=== PATIENT | male | born 1965 | race African-American/Black ===

== ENCOUNTER 2018-05-19 22:19 | Inpatient (IN) | payer OTHER ==
[~2018-05-19] VITALS: Ht 177.8 cm; Wt 159.0 kg
[2018-05-19] MEDS ORDERED: LOVA10TA2 PO (22:41)
[2018-05-19] MEDS ORDERED: AMLO-512 PO (22:41)
[2018-05-19] MEDS ORDERED: LISI-618 PO (22:41)
[2018-05-19] MEDS ORDERED: METF-961 PO (22:41)
[2018-05-19] MEDS ORDERED: METO1TAB42 PO (22:41)
[2018-05-19] MEDS ORDERED: GLIP5TAB11 PO (22:41)
[2018-05-19] MEDS ORDERED: LEVO88TA7 PO (22:41)
[2018-05-19 23:32] LABS: HEMATOCRIT 42.5 % (41-53); MEAN CORPUSCULAR VOLUME 85 fL (80-100); RED BLOOD CELL COUNT(AUTO) 5.02 MIL/uL (4.50-5.90)
[2018-05-19 23:33] LABS: MEAN CORPUSCULAR HEMOGLOBIN 27.9 pg (26.0-34.0); PLATELET COUNT (AUTO) 400 K/uL (150-450); RED CELL DISTRIBUTION WIDTH 15.8 % (11.5-14.5)
[2018-05-19 23:40] LABS: BAND NEUTROPHILS % (MANUAL) 13 % (0-5); LYMPHOCYTES % (MANUAL) 12 % (22-44); MONOCYTES % (MANUAL) 10 % (2-9); SEGMENTED NEUTROPHILS % 65 % (40-70)
[2018-05-19 23:42] LABS: ANION GAP 6 mmol/L (8-16); CALCIUM, TOTAL 8.3 mg/dL (8.8-10.5); CARBON DIOXIDE 32 mmol/L (22-29); CHLORIDE 98 mmol/L (98-107); CREATININE 1.33 mg/dL (0.60-1.30); GLOMERULAR FILTR. RATE CALC > 60 mL/min (>60); GLUCOSE,RANDOM 214 mg/dL (70-110); POTASSIUM 4.7 mmol/L (3.5-5.1); SODIUM SERUM 136 mmol/L (136-145); UREA NITROGEN, BLOOD 14 mg/dL (7-18)
[2018-05-19] MEDS ORDERED: AZITHROMYCIN 500 MG/NS 250 ML IV ONE (23:45)
[2018-05-19] MEDS ORDERED: CefTRIAXone SODIUM 1 GM in DEXTROSE 5%-WATER 10 ML IV ONE (23:45)
[2018-05-19] MEDS ORDERED: SODIUM CHLORIDE 0.9% 1,000 ML IV ONE (23:45)
[2018-05-19 23:48] LABS: ALANINE AMINOTRANSFERASE 40 U/L (12-78); ALBUMIN 3.5 g/dL (3.4-5.0); ALKALINE PHOSPHATASE 79 U/L (46-116); ASPARTATE AMINOTRANSFERASE 18 U/L (15-37); BILIRUBIN,TOTAL 0.5 mg/dL (0.1-1.0); TOTAL PROTEIN, SERUM 7.9 g/dL (6.4-8.2)
[2018-05-20] VITALS (7 sets, daily range): BP systolic 107–140; BP diastolic 63–79
[2018-05-20] MEDS ORDERED: ONDANSETRON HCL 4 MG/2 ML VIAL IVP PRN
[2018-05-20] MEDS ORDERED: MAGNESIUM HYDROXIDE SUSPENSION 30 ML UDCUP PO PRN
[2018-05-20] MEDS ORDERED: MORPHINE SULFATE 2 MG/ML SYRINGE IVP PRN
[2018-05-20] MEDS ORDERED: BISACODYL 10 MG RECTAL RECTAL SUPPOSITORY PR PRN
[2018-05-20] MEDS ORDERED: MORPHINE SULFATE 4 MG/ML SYRINGE IVP PRN (01:21)
[2018-05-20] MEDS: HEPARIN SODIUM,PORCINE 5,000 UNITS/ML VIAL SQ SCH ×4 (01:41→23:34)
[2018-05-20] MEDS: ZOLPIDEM TARTRATE 5 MG TABLET PO PRN (01:41)
[2018-05-20] MEDS: HYDROCODONE/ACETAMINOPHEN 5-325 MG TABLET PO PRN ×3 (01:49→17:04)
[2018-05-20] MEDS: LEVOFLOXACIN 750 MG/D5% WATER 150 ML IV SCH ×2 (03:04→23:35)
[2018-05-20 06:19] LABS: GLUCOMETER DEV NAME(LOC) 6N 2D; GLUCOSE,POINT OF CARE 154 MG/DL (70-110)
[2018-05-20 07:23] LABS: BASOPHILS % (AUTO) 1.6 % (0.0-2.0); EOSINOPHILS % (AUTO) 0.7 % (1.0-6.0); HEMATOCRIT 39.5 % (41-53); HEMOGLOBIN 12.7 g/dL (13.5-17.5); LYMPHOCYTES # (AUTO) 2.1 K/uL (1.0-4.8); LYMPHOCYTES % (AUTO) 19.1 % (22.0-44.0); MEAN CORPUSCULAR HEMOGLOBIN 27.5 pg (26.0-34.0); MEAN CORPUSCULAR HGB CONC 32.3 G/dL (31.0-37.0); MEAN CORPUSCULAR VOLUME 85 fL (80-100); MONOCYTES # (AUTO) 1.1 K/uL (0.1-1.0); MONOCYTES % (AUTO) 10.2 % (2.0-9.0); NEUTROPHILS # (AUTO) 7.6 K/uL (1.8-7.7); NEUTROPHILS % (AUTO) 68.4 % (40.0-70.0); PLATELET COUNT (AUTO) 354 K/uL (150-450); RED BLOOD CELL COUNT(AUTO) 4.63 MIL/uL (4.50-5.90); RED CELL DISTRIBUTION WIDTH 15.2 % (11.5-14.5)
[2018-05-20 07:37] LABS: ANION GAP 5 mmol/L (8-16); CALCIUM, TOTAL 7.9 mg/dL (8.8-10.5); CARBON DIOXIDE 33 mmol/L (22-29); CHLORIDE 98 mmol/L (98-107); CREATININE 1.38 mg/dL (0.60-1.30); GLOMERULAR FILTR. RATE CALC > 60 mL/min (>60); GLUCOSE,RANDOM 147 mg/dL (70-110); POTASSIUM 4.5 mmol/L (3.5-5.1); SODIUM SERUM 136 mmol/L (136-145); UREA NITROGEN, BLOOD 15 mg/dL (7-18)
[2018-05-20] MEDS: HYDROCHLOROTHIAZIDE 25 MG TABLET PO SCH ×2 (08:36→19:45)
[2018-05-20] MEDS: METOPROLOL SUCCINATE 50 MG ER TABLET PO SCH ×2 (08:37→19:45)
[2018-05-20] MEDS: DOCUSATE SODIUM 100 MG CAPSULE PO SCH ×2 (08:38→19:37)
[2018-05-20] MEDS: PANTOPRAZOLE SODIUM 40 MG DR TABLET PO SCH (08:38)
[2018-05-20] MEDS: GlipiZIDE 5 MG TABLET PO SCH ×2 (08:38→19:37)
[2018-05-20] MEDS: MetFORMIN HCL 850 MG TABLET PO SCH ×2 (08:38→16:56)
[2018-05-20] MEDS: AmLODIPine BESYLATE 10 MG TABLET PO SCH (08:38)
[2018-05-20] MEDS: LEVOTHYROXINE SODIUM 88 MCG TABLET PO SCH (08:38)
[2018-05-20] MEDS: LOVASTATIN 20 MG TABLET PO SCH (08:38)
[2018-05-20] MEDS: LISINOPRIL 20 MG TABLET PO SCH ×2 (08:39→19:45)
[2018-05-20] MEDS ORDERED: FLUoxetine HCL 10 MG CAPSULE PO SCH ×2 (16:00→17:00)
[2018-05-20 19:54] LABS: GLUCOMETER DEV NAME(LOC) 6N 2D; GLUCOSE,POINT OF CARE 138 MG/DL (70-110)
[2018-05-21] MEDS: ZOLPIDEM TARTRATE 5 MG TABLET PO PRN (00:38)
[2018-05-21 04:45] VITALS: BP 116/73
[2018-05-21] MEDS: LEVOTHYROXINE SODIUM 88 MCG TABLET PO SCH (06:04)
[2018-05-21 06:53] LABS: BASOPHILS % (AUTO) 0.6 % (0.0-2.0); EOSINOPHILS % (AUTO) 1.5 % (1.0-6.0); HEMATOCRIT 39.5 % (41-53); HEMOGLOBIN 12.9 g/dL (13.5-17.5); LYMPHOCYTES % (AUTO) 19.5 % (22.0-44.0); MEAN CORPUSCULAR HGB CONC 32.6 G/dL (31.0-37.0); MEAN CORPUSCULAR VOLUME 86 fL (80-100); MONOCYTES # (AUTO) 0.8 K/uL (0.1-1.0); MONOCYTES % (AUTO) 8.2 % (2.0-9.0); NEUTROPHILS # (AUTO) 7.3 K/uL (1.8-7.7); NEUTROPHILS % (AUTO) 70.2 % (40.0-70.0); PLATELET COUNT (AUTO) 344 K/uL (150-450); RED BLOOD CELL COUNT(AUTO) 4.59 MIL/uL (4.50-5.90); RED CELL DISTRIBUTION WIDTH 15.3 % (11.5-14.5)
[2018-05-21 07:21] LABS: ANION GAP 5 mmol/L (8-16); CALCIUM, TOTAL 8.5 mg/dL (8.8-10.5); CARBON DIOXIDE 33 mmol/L (22-29); CHLORIDE 98 mmol/L (98-107); CREATININE 1.45 mg/dL (0.60-1.30); GLOMERULAR FILTR. RATE CALC > 60 mL/min (>60); GLUCOSE,RANDOM 115 mg/dL (70-110); POTASSIUM 4.8 mmol/L (3.5-5.1); SODIUM SERUM 136 mmol/L (136-145); UREA NITROGEN, BLOOD 22 mg/dL (7-18)
[2018-05-21 07:39] VITALS: BP 136/46
[2018-05-21] MEDS: HYDROCHLOROTHIAZIDE 25 MG TABLET PO SCH ×2 (08:24→21:00)
[2018-05-21] MEDS: LOVASTATIN 20 MG TABLET PO SCH (08:24)
[2018-05-21] MEDS: LISINOPRIL 20 MG TABLET PO SCH ×2 (08:25→21:00)
[2018-05-21] MEDS: GlipiZIDE 5 MG TABLET PO SCH ×2 (08:25→20:45)
[2018-05-21] MEDS: MetFORMIN HCL 850 MG TABLET PO SCH ×2 (08:25→18:12)
[2018-05-21] MEDS: HEPARIN SODIUM,PORCINE 5,000 UNITS/ML VIAL SQ SCH ×3 (08:25→23:52)
[2018-05-21] MEDS: PANTOPRAZOLE SODIUM 40 MG DR TABLET PO SCH (08:25)
[2018-05-21] MEDS: DOCUSATE SODIUM 100 MG CAPSULE PO SCH ×2 (08:25→20:45)
[2018-05-21] MEDS: AmLODIPine BESYLATE 10 MG TABLET PO SCH (08:25)
[2018-05-21] MEDS: METOPROLOL SUCCINATE 50 MG ER TABLET PO SCH ×2 (08:27→20:44)
[2018-05-21] MEDS: FLUoxetine HCL 20 MG/5 ML SOLUTION ORAL.SYG PO SCH (09:55)
[2018-05-21 11:04] VITALS: BP 105/77
[2018-05-21 16:31] VITALS: BP 138/64
[2018-05-21 19:08] LABS: GLUCOMETER DEV NAME(LOC) 6N 2D; GLUCOSE,POINT OF CARE 116 MG/DL (70-110)
[2018-05-21] MEDS: IPRATROPIUM BROMIDE 0.5 MG/2.5 ML NEB SOLUTION NEB PRN (19:47)
[2018-05-21] MEDS: ALBUTEROL SULFATE 2.5 MG/0.5 ML NEB SOLUTION NEB PRN (19:47)
[2018-05-21 20:00] VITALS: BP 115/63
[2018-05-21] MEDS: HYDROCODONE/ACETAMINOPHEN 5-325 MG TABLET PO PRN (20:51)
[2018-05-21] MEDS: LEVOFLOXACIN 750 MG/D5% WATER 150 ML IV SCH (23:52)
[2018-05-22 00:13] VITALS: BP 101/58
[2018-05-22] MEDS: ZOLPIDEM TARTRATE 5 MG TABLET PO PRN ×2 (00:15→23:25)
[2018-05-22 04:50] VITALS: BP 118/54
[2018-05-22 05:41] LABS: BASOPHILS % (AUTO) 0.9 % (0.0-2.0); EOSINOPHILS % (AUTO) 1.5 % (1.0-6.0); HEMATOCRIT 36.7 % (41-53); HEMOGLOBIN 11.8 g/dL (13.5-17.5); LYMPHOCYTES # (AUTO) 1.5 K/uL (1.0-4.8); LYMPHOCYTES % (AUTO) 17.5 % (22.0-44.0); MEAN CORPUSCULAR HEMOGLOBIN 27.6 pg (26.0-34.0); MEAN CORPUSCULAR HGB CONC 32.3 G/dL (31.0-37.0); MEAN CORPUSCULAR VOLUME 86 fL (80-100); MONOCYTES # (AUTO) 0.8 K/uL (0.1-1.0); MONOCYTES % (AUTO) 9.7 % (2.0-9.0); NEUTROPHILS # (AUTO) 6.1 K/uL (1.8-7.7); NEUTROPHILS % (AUTO) 70.4 % (40.0-70.0); PLATELET COUNT (AUTO) 337 K/uL (150-450); RED BLOOD CELL COUNT(AUTO) 4.28 MIL/uL (4.50-5.90); RED CELL DISTRIBUTION WIDTH 14.9 % (11.5-14.5)
[2018-05-22 05:57] LABS: ANION GAP 1 mmol/L (8-16); CALCIUM, TOTAL 8.4 mg/dL (8.8-10.5); CARBON DIOXIDE 36 mmol/L (22-29); CHLORIDE 101 mmol/L (98-107); CREATININE 1.42 mg/dL (0.60-1.30); GLOMERULAR FILTR. RATE CALC > 60 mL/min (>60); GLUCOSE,RANDOM 89 mg/dL (70-110); POTASSIUM 5.1 mmol/L (3.5-5.1); SODIUM SERUM 138 mmol/L (136-145); UREA NITROGEN, BLOOD 23 mg/dL (7-18)
[2018-05-22] MEDS: LEVOTHYROXINE SODIUM 88 MCG TABLET PO SCH (05:59)
[2018-05-22 06:23] LABS: GLUCOMETER DEV NAME(LOC) 6N 2D; GLUCOSE,POINT OF CARE 88 MG/DL (70-110)
[2018-05-22 07:54] VITALS: BP 120/68
[2018-05-22] MEDS: HYDROCODONE/ACETAMINOPHEN 5-325 MG TABLET PO PRN ×3 (08:23→23:26)
[2018-05-22] MEDS: METOPROLOL SUCCINATE 50 MG ER TABLET PO SCH ×2 (08:23→19:48)
[2018-05-22] MEDS: MetFORMIN HCL 850 MG TABLET PO SCH ×2 (08:23→16:56)
[2018-05-22] MEDS: HYDROCHLOROTHIAZIDE 25 MG TABLET PO SCH ×2 (08:23→19:48)
[2018-05-22] MEDS: LISINOPRIL 20 MG TABLET PO SCH ×2 (08:24→19:48)
[2018-05-22] MEDS: LOVASTATIN 20 MG TABLET PO SCH (08:24)
[2018-05-22] MEDS: HEPARIN SODIUM,PORCINE 5,000 UNITS/ML VIAL SQ SCH ×3 (08:24→23:15)
[2018-05-22] MEDS: GlipiZIDE 5 MG TABLET PO SCH ×2 (08:24→19:42)
[2018-05-22] MEDS: FLUoxetine HCL 20 MG/5 ML SOLUTION ORAL.SYG PO SCH (08:24)
[2018-05-22] MEDS: DOCUSATE SODIUM 100 MG CAPSULE PO SCH ×2 (08:24→19:42)
[2018-05-22] MEDS: PANTOPRAZOLE SODIUM 40 MG DR TABLET PO SCH (08:24)
[2018-05-22] MEDS: AmLODIPine BESYLATE 10 MG TABLET PO SCH (08:24)
[2018-05-22 11:13] LABS: GLUCOMETER DEV NAME(LOC) 6N 1E; GLUCOSE,POINT OF CARE 123 MG/DL (70-110)
[2018-05-22 11:40] VITALS: BP 93/63
[2018-05-22 16:17] VITALS: BP 107/54
[2018-05-22 19:40] VITALS: BP 108/47
[2018-05-22 20:13] LABS: GLUCOMETER DEV NAME(LOC) 6N 1E; GLUCOSE,POINT OF CARE 98 MG/DL (70-110)
[2018-05-22] MEDS: LEVOFLOXACIN 750 MG/D5% WATER 150 ML IV SCH (23:15)
[2018-05-23] VITALS (7 sets, daily range): BP systolic 108–134; BP diastolic 61–75
[2018-05-23] MEDS: LEVOTHYROXINE SODIUM 88 MCG TABLET PO SCH (06:01)
[2018-05-23] MEDS: HEPARIN SODIUM,PORCINE 5,000 UNITS/ML VIAL SQ SCH ×3 (08:02→23:58)
[2018-05-23] MEDS: MetFORMIN HCL 850 MG TABLET PO SCH ×2 (08:02→17:37)
[2018-05-23] MEDS: GlipiZIDE 5 MG TABLET PO SCH ×2 (08:02→20:01)
[2018-05-23] MEDS: LOVASTATIN 20 MG TABLET PO SCH (08:03)
[2018-05-23] MEDS: HYDROCODONE/ACETAMINOPHEN 5-325 MG TABLET PO PRN ×2 (08:03→20:18)
[2018-05-23] MEDS: PANTOPRAZOLE SODIUM 40 MG DR TABLET PO SCH (08:03)
[2018-05-23] MEDS: METOPROLOL SUCCINATE 50 MG ER TABLET PO SCH ×2 (08:03→20:02)
[2018-05-23] MEDS: HYDROCHLOROTHIAZIDE 25 MG TABLET PO SCH ×2 (08:03→20:02)
[2018-05-23] MEDS: FLUoxetine HCL 20 MG/5 ML SOLUTION ORAL.SYG PO SCH (08:03)
[2018-05-23] MEDS: LISINOPRIL 20 MG TABLET PO SCH ×2 (08:03→20:03)
[2018-05-23] MEDS: AmLODIPine BESYLATE 10 MG TABLET PO SCH (08:03)
[2018-05-23] MEDS: DOCUSATE SODIUM 100 MG CAPSULE PO SCH ×2 (08:08→20:02)
[2018-05-23] MEDS ORDERED: PNEUMOCOCCAL VACCINE POLYVALENT 0.5 ML VIAL [PPSV23] IM ONE (12:15)
[2018-05-23] MEDS: ACETAMINOPHEN 325 MG TABLET PO PRN (15:38)
[2018-05-23] MEDS: LEVOFLOXACIN 750 MG/D5% WATER 150 ML IV SCH (23:09)
[2018-05-23] MEDS: ZOLPIDEM TARTRATE 5 MG TABLET PO PRN (23:09)
[2018-05-24 03:55] VITALS: BP 111/68
[2018-05-24] MEDS: HYDROCODONE/ACETAMINOPHEN 5-325 MG TABLET PO PRN ×2 (04:30→17:28)
[2018-05-24] MEDS: LEVOTHYROXINE SODIUM 88 MCG TABLET PO SCH (05:39)
[2018-05-24] MEDS: ACETAMINOPHEN 325 MG TABLET PO PRN (05:39)
[2018-05-24 07:11] LABS: BASOPHILS % (AUTO) 0.7 % (0.0-2.0); EOSINOPHILS % (AUTO) 2.4 % (1.0-6.0); HEMATOCRIT 37.9 % (41-53); HEMOGLOBIN 12.1 g/dL (13.5-17.5); LYMPHOCYTES # (AUTO) 1.7 K/uL (1.0-4.8); LYMPHOCYTES % (AUTO) 22.4 % (22.0-44.0); MEAN CORPUSCULAR HEMOGLOBIN 27.3 pg (26.0-34.0); MEAN CORPUSCULAR HGB CONC 31.9 G/dL (31.0-37.0); MEAN CORPUSCULAR VOLUME 86 fL (80-100); MONOCYTES # (AUTO) 0.9 K/uL (0.1-1.0); MONOCYTES % (AUTO) 11.1 % (2.0-9.0); NEUTROPHILS # (AUTO) 4.9 K/uL (1.8-7.7); NEUTROPHILS % (AUTO) 63.4 % (40.0-70.0); PLATELET COUNT (AUTO) 343 K/uL (150-450); RED BLOOD CELL COUNT(AUTO) 4.43 MIL/uL (4.50-5.90); RED CELL DISTRIBUTION WIDTH 14.5 % (11.5-14.5)
[2018-05-24 07:14] LABS: ANION GAP 6 mmol/L (8-16); CALCIUM, TOTAL 9.3 mg/dL (8.8-10.5); CARBON DIOXIDE 32 mmol/L (22-29); CHLORIDE 99 mmol/L (98-107); CREATININE 1.09 mg/dL (0.60-1.30); GLOMERULAR FILTR. RATE CALC > 60 mL/min (>60); GLUCOSE,RANDOM 90 mg/dL (70-110); POTASSIUM 5.2 mmol/L (3.5-5.1); SODIUM SERUM 137 mmol/L (136-145); UREA NITROGEN, BLOOD 21 mg/dL (7-18)
[2018-05-24 08:04] VITALS: BP 145/89
[2018-05-24] MEDS: HEPARIN SODIUM,PORCINE 5,000 UNITS/ML VIAL SQ SCH ×2 (08:13→17:23)
[2018-05-24] MEDS: LISINOPRIL 20 MG TABLET PO SCH ×2 (08:14→20:46)
[2018-05-24] MEDS: PANTOPRAZOLE SODIUM 40 MG DR TABLET PO SCH (08:14)
[2018-05-24] MEDS: MetFORMIN HCL 850 MG TABLET PO SCH ×2 (08:15→17:30)
[2018-05-24] MEDS: AmLODIPine BESYLATE 10 MG TABLET PO SCH (08:15)
[2018-05-24] MEDS: LOVASTATIN 20 MG TABLET PO SCH (08:15)
[2018-05-24] MEDS: METOPROLOL SUCCINATE 50 MG ER TABLET PO SCH ×2 (08:16→20:46)
[2018-05-24] MEDS: FLUoxetine HCL 20 MG/5 ML SOLUTION ORAL.SYG PO SCH (08:18)
[2018-05-24] MEDS: DOCUSATE SODIUM 100 MG CAPSULE PO SCH ×2 (09:00→20:45)
[2018-05-24] MEDS: GlipiZIDE 5 MG TABLET PO SCH ×2 (10:06→21:00)
[2018-05-24] MEDS: HYDROCHLOROTHIAZIDE 25 MG TABLET PO SCH ×2 (10:07→20:45)
[2018-05-24 11:29] VITALS: BP 147/93
[2018-05-24] MEDS ORDERED: IOVERSOL 350 MG/ML 150 ML VIAL ONE (14:06)
[2018-05-24 16:12] VITALS: BP 129/84
[2018-05-24 19:49] VITALS: BP 113/63
[2018-05-24] MEDS: ALBUTEROL SULFATE 2.5 MG/0.5 ML NEB SOLUTION NEB PRN (20:23)
[2018-05-24] MEDS: IPRATROPIUM BROMIDE 0.5 MG/2.5 ML NEB SOLUTION NEB PRN (20:23)
[2018-05-24] MEDS ORDERED: SODIUM CHLORIDE 0.9% 500 ML IV ONE (23:53)
[2018-05-25] VITALS (7 sets, daily range): BP systolic 100–131; BP diastolic 53–73
[2018-05-25] MEDS: ZOLPIDEM TARTRATE 5 MG TABLET PO PRN ×2 (00:03→23:11)
[2018-05-25] MEDS: LEVOFLOXACIN 750 MG/D5% WATER 150 ML IV SCH ×2 (00:03→23:05)
[2018-05-25] MEDS: HYDROCODONE/ACETAMINOPHEN 5-325 MG TABLET PO PRN ×3 (00:04→20:30)
[2018-05-25] MEDS: HEPARIN SODIUM,PORCINE 5,000 UNITS/ML VIAL SQ SCH ×4 (00:15→23:06)
[2018-05-25] MEDS: LEVOTHYROXINE SODIUM 88 MCG TABLET PO SCH ×2 (06:07→07:04)
[2018-05-25 06:48] LABS: GLUCOMETER DEV NAME(LOC) PV 4E2; GLUCOSE,POINT OF CARE 104 MG/DL (70-110)
[2018-05-25 06:48] LABS: GLUCOMETER DEV NAME(LOC) PV 4E2; GLUCOSE,POINT OF CARE 118 MG/DL (70-110)
[2018-05-25] MEDS: MetFORMIN HCL 850 MG TABLET PO SCH ×2 (08:00→17:30)
[2018-05-25] MEDS: PANTOPRAZOLE SODIUM 40 MG DR TABLET PO SCH (08:15)
[2018-05-25] MEDS: GlipiZIDE 5 MG TABLET PO SCH ×2 (08:15→20:30)
[2018-05-25] MEDS: DOCUSATE SODIUM 100 MG CAPSULE PO SCH ×2 (08:15→20:30)
[2018-05-25] MEDS: HYDROCHLOROTHIAZIDE 25 MG TABLET PO SCH ×2 (08:15→20:31)
[2018-05-25] MEDS: METOPROLOL SUCCINATE 50 MG ER TABLET PO SCH ×2 (08:15→20:30)
[2018-05-25] MEDS: LISINOPRIL 20 MG TABLET PO SCH ×2 (08:15→20:31)
[2018-05-25] MEDS: FLUoxetine HCL 20 MG/5 ML SOLUTION ORAL.SYG PO SCH (08:16)
[2018-05-25] MEDS: LOVASTATIN 20 MG TABLET PO SCH (08:16)
[2018-05-25] MEDS: AmLODIPine BESYLATE 10 MG TABLET PO SCH (08:17)
[2018-05-25 11:58] LABS: GLUCOMETER DEV NAME(LOC) PV 4E2; GLUCOSE,POINT OF CARE 73 MG/DL (70-110)
[2018-05-25 17:38] LABS: GLUCOMETER DEV NAME(LOC) PV 4E2; GLUCOSE,POINT OF CARE 98 MG/DL (70-110)
[2018-05-25 22:28] LABS: GLUCOMETER DEV NAME(LOC) PV 4E2; GLUCOSE,POINT OF CARE 106 MG/DL (70-110)
[2018-05-26] MEDS: LEVOTHYROXINE SODIUM 88 MCG TABLET PO SCH (05:23)
[2018-05-26 05:29] VITALS: BP 143/94
[2018-05-26] MEDS: HYDROCODONE/ACETAMINOPHEN 5-325 MG TABLET PO PRN ×3 (05:37→23:27)
[2018-05-26 06:23] LABS: ALANINE AMINOTRANSFERASE 40 U/L (12-78); ALBUMIN 3.4 g/dL (3.4-5.0); ALKALINE PHOSPHATASE 66 U/L (46-116); ANION GAP 2 mmol/L (8-16); ASPARTATE AMINOTRANSFERASE 30 U/L (15-37); BILIRUBIN,TOTAL 0.6 mg/dL (0.1-1.0); CALCIUM, TOTAL 9.4 mg/dL (8.8-10.5); CARBON DIOXIDE 35 mmol/L (22-29); CHLORIDE 98 mmol/L (98-107); CREATININE 1.19 mg/dL (0.60-1.30); GLOMERULAR FILTR. RATE CALC > 60 mL/min (>60); GLUCOSE,RANDOM 116 mg/dL (70-110); POTASSIUM 5.8 mmol/L (3.5-5.1); SODIUM SERUM 135 mmol/L (136-145); UREA NITROGEN, BLOOD 17 mg/dL (7-18)
[2018-05-26 06:26] LABS: BASOPHILS % (AUTO) 1.1 % (0.0-2.0); EOSINOPHILS % (AUTO) 2.4 % (1.0-6.0); HEMATOCRIT 39.6 % (41-53); HEMOGLOBIN 13.1 g/dL (13.5-17.5); LYMPHOCYTES # (AUTO) 1.9 K/uL (1.0-4.8); LYMPHOCYTES % (AUTO) 24.4 % (22.0-44.0); MEAN CORPUSCULAR HEMOGLOBIN 27.7 pg (26.0-34.0); MEAN CORPUSCULAR HGB CONC 33.2 G/dL (31.0-37.0); MEAN CORPUSCULAR VOLUME 83 fL (80-100); MONOCYTES # (AUTO) 0.9 K/uL (0.1-1.0); MONOCYTES % (AUTO) 11.3 % (2.0-9.0); NEUTROPHILS # (AUTO) 4.9 K/uL (1.8-7.7); NEUTROPHILS % (AUTO) 60.8 % (40.0-70.0); PLATELET COUNT (AUTO) 407 K/uL (150-450); RED BLOOD CELL COUNT(AUTO) 4.74 MIL/uL (4.50-5.90); RED CELL DISTRIBUTION WIDTH 14.7 % (11.5-14.5)
[2018-05-26 07:21] VITALS: BP 128/70
[2018-05-26] MEDS: DOCUSATE SODIUM 100 MG CAPSULE PO SCH ×2 (08:47→21:39)
[2018-05-26] MEDS: MetFORMIN HCL 850 MG TABLET PO SCH ×2 (08:47→17:34)
[2018-05-26] MEDS: LISINOPRIL 20 MG TABLET PO SCH ×2 (08:48→21:00)
[2018-05-26] MEDS: PANTOPRAZOLE SODIUM 40 MG DR TABLET PO SCH (08:48)
[2018-05-26] MEDS: AmLODIPine BESYLATE 10 MG TABLET PO SCH (08:48)
[2018-05-26] MEDS: METOPROLOL SUCCINATE 50 MG ER TABLET PO SCH ×2 (08:48→21:38)
[2018-05-26] MEDS: GlipiZIDE 5 MG TABLET PO SCH ×2 (08:48→21:39)
[2018-05-26] MEDS: FLUoxetine HCL 20 MG/5 ML SOLUTION ORAL.SYG PO SCH (08:48)
[2018-05-26] MEDS: LOVASTATIN 20 MG TABLET PO SCH (08:49)
[2018-05-26] MEDS: HEPARIN SODIUM,PORCINE 5,000 UNITS/ML VIAL SQ SCH ×3 (08:49→23:17)
[2018-05-26] MEDS: HYDROCHLOROTHIAZIDE 25 MG TABLET PO SCH ×2 (08:49→21:39)
[2018-05-26] MEDS: ACETAMINOPHEN 325 MG TABLET PO PRN (09:02)
[2018-05-26 10:23] LABS: GLUCOMETER DEV NAME(LOC) PV 4E2; GLUCOSE,POINT OF CARE 111 MG/DL (70-110)
[2018-05-26 11:14] VITALS: BP 97/55
[2018-05-26 15:20] VITALS: BP 111/75
[2018-05-26 20:09] VITALS: BP 130/89
[2018-05-26] MEDS: LEVOFLOXACIN 750 MG/D5% WATER 150 ML IV SCH (23:17)
[2018-05-26] MEDS: ZOLPIDEM TARTRATE 5 MG TABLET PO PRN (23:17)
[2018-05-26 23:48] VITALS: BP 129/71
[2018-05-27 04:00] VITALS: BP 116/76
[2018-05-27 06:11] LABS: BASOPHILS % (AUTO) 0.3 % (0.0-2.0); EOSINOPHILS % (AUTO) 2.8 % (1.0-6.0); HEMATOCRIT 40.1 % (41-53); HEMOGLOBIN 13.2 g/dL (13.5-17.5); LYMPHOCYTES # (AUTO) 2.3 K/uL (1.0-4.8); LYMPHOCYTES % (AUTO) 30.9 % (22.0-44.0); MEAN CORPUSCULAR HEMOGLOBIN 28.1 pg (26.0-34.0); MEAN CORPUSCULAR HGB CONC 32.9 G/dL (31.0-37.0); MEAN CORPUSCULAR VOLUME 85 fL (80-100); MONOCYTES # (AUTO) 0.9 K/uL (0.1-1.0); MONOCYTES % (AUTO) 11.6 % (2.0-9.0); NEUTROPHILS # (AUTO) 4.1 K/uL (1.8-7.7); NEUTROPHILS % (AUTO) 54.4 % (40.0-70.0); PLATELET COUNT (AUTO) 412 K/uL (150-450); RED BLOOD CELL COUNT(AUTO) 4.69 MIL/uL (4.50-5.90); RED CELL DISTRIBUTION WIDTH 14.6 % (11.5-14.5)
[2018-05-27 06:22] LABS: ALANINE AMINOTRANSFERASE 38 U/L (12-78); ALBUMIN 3.3 g/dL (3.4-5.0); ALKALINE PHOSPHATASE 66 U/L (46-116); ANION GAP 1 mmol/L (8-16); ASPARTATE AMINOTRANSFERASE 27 U/L (15-37); BILIRUBIN,TOTAL 0.4 mg/dL (0.1-1.0); CALCIUM, TOTAL 8.9 mg/dL (8.8-10.5); CARBON DIOXIDE 37 mmol/L (22-29); CHLORIDE 99 mmol/L (98-107); CREATININE 1.33 mg/dL (0.60-1.30); GLOMERULAR FILTR. RATE CALC > 60 mL/min (>60); GLUCOSE,RANDOM 98 mg/dL (70-110); POTASSIUM 5.2 mmol/L (3.5-5.1); SODIUM SERUM 137 mmol/L (136-145); TOTAL PROTEIN, SERUM 7.7 g/dL (6.4-8.2); UREA NITROGEN, BLOOD 22 mg/dL (7-18)
[2018-05-27] MEDS: LEVOTHYROXINE SODIUM 88 MCG TABLET PO SCH (06:47)
[2018-05-27 07:45] VITALS: BP 128/72
[2018-05-27] MEDS: DOCUSATE SODIUM 100 MG CAPSULE PO SCH (09:00)
[2018-05-27] MEDS: PANTOPRAZOLE SODIUM 40 MG DR TABLET PO SCH (09:13)
[2018-05-27] MEDS: LISINOPRIL 20 MG TABLET PO SCH (09:13)
[2018-05-27] MEDS: AmLODIPine BESYLATE 10 MG TABLET PO SCH (09:13)
[2018-05-27] MEDS: LOVASTATIN 20 MG TABLET PO SCH (09:14)
[2018-05-27] MEDS: HYDROCHLOROTHIAZIDE 25 MG TABLET PO SCH (09:14)
[2018-05-27] MEDS: METOPROLOL SUCCINATE 50 MG ER TABLET PO SCH (09:14)
[2018-05-27] MEDS: MetFORMIN HCL 850 MG TABLET PO SCH (09:15)
[2018-05-27] MEDS: HEPARIN SODIUM,PORCINE 5,000 UNITS/ML VIAL SQ SCH (09:15)
[2018-05-27] MEDS: GlipiZIDE 5 MG TABLET PO SCH (09:15)
[2018-05-27] MEDS: FLUoxetine HCL 20 MG/5 ML SOLUTION ORAL.SYG PO SCH (09:15)
[2018-05-27] MEDS: HYDROCODONE/ACETAMINOPHEN 5-325 MG TABLET PO PRN (09:21)
[2018-05-27 12:05] VITALS: BP 106/65
[2018-05-27] MEDS ORDERED: METO-558 PO (14:23)
[2018-05-27] MEDS ORDERED: LEVO250 PO (14:24)
[2018-05-27] MEDS ORDERED: PROZ10 PO (14:24)
[2018-05-27] MEDS ORDERED: HYDR25TA PO (14:25)
== END 2018-05-27 14:00 | disposition home or self-care (01) | DRG 720 ==
LOC: EMS 22:20 → 6N 05-20 00:30 → 4E 05-24 07:16
PROVIDERS: ADMIT Internal Medicine; ATTEND Internal Medicine
PROC: 3E02340 Introduction of Influenza Vaccine into Muscle, Percutaneous Approach (ICD-10-PCS; principal; 2018-05-23)
PROC: 3E0234Z Introduction of Serum, Toxoid and Vaccine into Muscle, Percutaneous Approach (ICD-10-PCS; 2018-05-23)
DX: A41.9 Sepsis, unspecified organism (principal); J96.01 Acute respiratory failure with hypoxia; J18.9 Pneumonia, unspecified organism; I10 Essential (primary) hypertension; E03.9 Hypothyroidism, unspecified; E11.9 Type 2 diabetes mellitus without complications; Z68.43 Body mass index [BMI] 50.0-59.9, adult; E78.5 Hyperlipidemia, unspecified; E87.5 Hyperkalemia; G47.33 Obstructive sleep apnea (adult) (pediatric); J90 Pleural effusion, not elsewhere classified; E66.01 Morbid (severe) obesity due to excess calories; F12.90 Cannabis use, unspecified, uncomplicated; M10.9 Gout, unspecified; Z79.899 Other long term (current) drug therapy; Z23 Encounter for immunization
CPT/HCPCS: 71275; 83605; 87040; 90686; 90732; 93005; 94640; 96365; 96368; G0378; J0456; J0696; J1644; J1956; J7040; J7060

== ENCOUNTER 2018-12-23 12:55 | Emergency (ER) | payer OTHER ==
[~2018-12-23] VITALS: Ht 177.8 cm; Wt 159.1 kg
[~2018-12-23 12:55] MED LIST: AMLO-512 PO; GLIP5TAB11 PO; HYDR25TA PO; LEVO250 PO; LEVO88TA7 PO; LISI-618 PO; LOVA10TA2 PO; METF-961 PO; METO-558 PO; METO1TAB42 PO; PROZ10 PO
[2018-12-23 13:14] LABS: GLUCOSE,POINT OF CARE 153 MG/DL (70-110)
[2018-12-23 13:35] LABS: BASOPHILS % (AUTO) 0.6 % (0.0-2.0); HEMATOCRIT 46.5 % (41-53); HEMOGLOBIN 14.9 g/dL (13.5-17.5); LYMPHOCYTES # (AUTO) 1.1 K/uL (1.0-4.8); LYMPHOCYTES % (AUTO) 9.6 % (22.0-44.0); MEAN CORPUSCULAR HEMOGLOBIN 27.6 pg (26.0-34.0); MEAN CORPUSCULAR VOLUME 86 fL (80-100); MONOCYTES # (AUTO) 0.8 K/uL (0.1-1.0); NEUTROPHILS # (AUTO) 9.6 K/uL (1.8-7.7); NEUTROPHILS % (AUTO) 80.8 % (40.0-70.0); PLATELET COUNT (AUTO) 465 K/uL (150-450); RED BLOOD CELL COUNT(AUTO) 5.39 MIL/uL (4.50-5.90); RED CELL DISTRIBUTION WIDTH 15.6 % (11.5-14.5)
[2018-12-23 13:43] LABS: CALCIUM, TOTAL 9.6 mg/dL (8.8-10.5); CREATININE 1.57 mg/dL (0.60-1.30)
[2018-12-23 13:49] LABS: ALBUMIN 4.1 g/dL (3.4-5.0); BILIRUBIN,TOTAL 0.6 mg/dL (0.1-1.0); TOTAL PROTEIN, SERUM 8.5 g/dL (6.4-8.2)
[2018-12-23] MEDS ORDERED: ALBUTEROL SULFATE 2.5 MG/0.5 ML NEB SOLUTION NEB ONE (14:45)
[2018-12-23] MEDS ORDERED: ALBUTEROL SULFATE HFA 90 MCG/PUFF 8 GM INHALER IH ONE (14:45)
[2018-12-23] MEDS ORDERED: IPRATROPIUM BROMIDE 0.5 MG/2.5 ML NEB SOLUTION NEB ONE (14:45)
[2018-12-23] MEDS ORDERED: ASPIRIN 81 MG CHEWABLE TABLET PO ONE (16:00)
[2018-12-23 18:37] VITALS: BP 118/62
== END 2018-12-23 18:40 | disposition home or self-care (01) ==
LOC: EMS 12:58
DX: J45.901 Unspecified asthma with (acute) exacerbation (principal); E11.9 Type 2 diabetes mellitus without complications; I10 Essential (primary) hypertension; F12.90 Cannabis use, unspecified, uncomplicated; Z79.899 Other long term (current) drug therapy
CPT/HCPCS: 93005; 94640; J3535

== ENCOUNTER 2020-10-01 16:29 | Emergency (ER) | payer OTHER ==
[~2020-10-01] VITALS: Ht 180.3 cm; Wt 168.2 kg
[~2020-10-01 16:29] MED LIST changes: +AMLO-258 PO; -AMLO-512 PO; -HYDR25TA PO; +HYDR25TA2 PO; -LEVO250 PO; -LISI-618 PO; +LISI20TA24 PO
[2020-10-01 18:14] LABS: BASOPHILS % (AUTO) 1.1 % (0.0-2.0); EOSINOPHILS % (AUTO) 2.5 % (1.0-6.0); HEMATOCRIT 37.8 % (41-53); HEMOGLOBIN 12.1 g/dL (13.5-17.5); LYMPHOCYTES # (AUTO) 2.1 K/uL (1.0-4.8); LYMPHOCYTES % (AUTO) 26.2 % (22.0-44.0); MEAN CORPUSCULAR HGB CONC 31.9 G/dL (31.0-37.0); MEAN CORPUSCULAR VOLUME 85 fL (80-100); MONOCYTES # (AUTO) 0.7 K/uL (0.1-1.0); NEUTROPHILS # (AUTO) 4.8 K/uL (1.8-7.7); NEUTROPHILS % (AUTO) 61.2 % (40.0-70.0); PLATELET COUNT (AUTO) 384 K/uL (150-450); RED BLOOD CELL COUNT(AUTO) 4.46 MIL/uL (4.50-5.90); RED CELL DISTRIBUTION WIDTH 15.6 % (11.5-14.5)
[2020-10-01 18:21] LABS: CALCIUM, TOTAL 9.2 mg/dL (8.8-10.5); CREATININE 1.57 mg/dL (0.60-1.30); POTASSIUM 5.7 mmol/L (3.5-5.1)
[2020-10-01 18:27] LABS: ALBUMIN 3.8 g/dL (3.4-5.0); BILIRUBIN,TOTAL 0.2 mg/dL (0.1-1.0)
[2020-10-01] MEDS ORDERED: SODIUM POLYSTYRENE SULFONATE 15 GM/60 ML SUSPENSION BOTTLE PR ONE (19:00)
[2020-10-01 19:43] VITALS: BP 133/74
== END 2020-10-01 20:28 | disposition home or self-care (01) ==
LOC: EMS 16:29
DX: I13.11 Hypertensive heart and chronic kidney disease without heart failure, with stage 5 chronic kidney disease, or end stage renal disease (principal); E87.5 Hyperkalemia; F12.90 Cannabis use, unspecified, uncomplicated
CPT/HCPCS: 93005; 99284